=== PATIENT | male | born 1940 | race Caucasian/White ===

== ENCOUNTER 2019-11-22 10:38 | Day surgery (SDC) | payer MEDICARE, BC ==
[~2019-11-22] VITALS: Ht 172.7 cm; Wt 78.4 kg
[~2019-11-22 10:38] MED LIST: FINA5TAB4 PO; TAMS-11 PO
[2019-11-22] MEDS ORDERED: LACTATED RINGERS 1,000 ML IV SCH (10:58)
[2019-11-22] MEDS ORDERED: CHLORHEXIDINE 15 ML UDC MM ONE (11:00)
[2019-11-22] MEDS ORDERED: ASPIRIN PO (11:17)
[2019-11-22 11:19] VITALS: BP 181/77
[2019-11-22] MEDS ORDERED: FENTANYL PF 250 MCG/5ML ONE (12:35)
[2019-11-22] MEDS ORDERED: SUCCINYLCHOLINE 20 MG/ML, 10ML ONE (12:39)
[2019-11-22] MEDS ORDERED: PROPOFOL 10 MG/ML, 20ML ONE (12:39)
[2019-11-22] MEDS ORDERED: ROCURONIUM 10MG/ML,5ML ONE (12:39)
[2019-11-22] MEDS ORDERED: CEFAZOLIN PMX 2GM/50ML IVPB ONE (13:03)
[2019-11-22] MEDS ORDERED: ONDANSETRON 2MG/ML, 2ML ONE (13:03)
[2019-11-22] MEDS ORDERED: EPHEDRINE 50 MG/ML, 1ML ONE (13:03)
[2019-11-22] MEDS ORDERED: DEXAMETHASONE 4 MG/ML, 1ML ONE (13:11)
[2019-11-22] MEDS ORDERED: EPHEDRINE 50 MG/ML, 1ML IVPush PRN (14:00)
[2019-11-22] MEDS ORDERED: PROMETHAZINE 12.5 MG SUPP PR PRN (14:00)
[2019-11-22] MEDS ORDERED: hydrALAzine 20 MG/ML, 1ML IV PRN (14:00)
[2019-11-22] MEDS ORDERED: FENTANYL PF 100 MCG/2ML IV PRN (14:00)
[2019-11-22] MEDS ORDERED: OXYcodone 5 MG/5 ML ORAL.SOL UDC PO PRN (14:00)
[2019-11-22] MEDS ORDERED: HYDROmorphone 1 MG/ML, 1ML INJ IVPush PRN (14:00)
[2019-11-22] MEDS ORDERED: DIPHENHYDRAMINE 50 MG/ML, 1ML IVPush PRN (14:00)
[2019-11-22] MEDS ORDERED: MEPERIDINE/PF 25MG/0.5ML IVPush PRN (14:00)
[2019-11-22] MEDS ORDERED: MIDAZOLAM 1 MG/ML, 2ML IV PRN (14:00)
[2019-11-22] MEDS ORDERED: ONDANSETRON 2MG/ML, 2ML IVPush PRN (14:00)
[2019-11-22] MEDS ORDERED: DIAZEPAM 5 MG/ML, 2ML IVPush PRN (14:00)
[2019-11-22] MEDS ORDERED: ACETAMINOPHEN 325 MG TABLET PO PRN (14:00)
[2019-11-22] MEDS ORDERED: LABETALOL 5MG/ML, 20ML IV PRN (14:00)
[2019-11-22] MEDS ORDERED: ALBUTEROL SULFATE 2.5 MG/3 ML NPPB PRN (14:00)
[2019-11-22] MEDS ORDERED: PROMETHAZINE 25 MG/ML, 1ML IVPush PRN (14:00)
== END 2019-11-22 16:00 | disposition home or self-care (01) ==
LOC: OUT 10:38
PROVIDERS: ATTEND Urology
DX: N21.0 Calculus in bladder (principal); Z11.59 Encounter for screening for other viral diseases; I48.0 Paroxysmal atrial fibrillation; Z72.89 Other problems related to lifestyle; Z79.899 Other long term (current) drug therapy; Z88.1 Allergy status to other antibiotic agents; Z88.2 Allergy status to sulfonamides; Z79.82 Long term (current) use of aspirin
CPT/HCPCS: 52317; 82360; 87635; 88300; 93005; J0330; J0690; J1100; J2405; J2704; J3010; J7120